=== PATIENT | female | born 1995 | race Caucasian/White ===

== ENCOUNTER 2019-10-23 04:50 | Inpatient (IN) | payer OTHER, SELFPAY ==
[2019-10-23] VITALS (122 sets, daily range): BP systolic 89–152; BP diastolic 45–97; PULSE 25–108; RESP 18–20; TEMP 36.4–37.6; O2SAT 97–100; BMI 28.2
--- NOTE | 2019-10-23 04:50 | LDADM ---
This patient, Rossy Wood, was admitted to Labor/Delivery/Recovery 103 on 10/23/19 at 04:50. Plans for labor, pain management and were discussed with patient. Patient/family oriented to hospital policies and general routines including ID bracelet, bed and alarms, visiting hours, pain management, procedures, bathroom and other care routines, personal items, smoking policy, room service/diet and guest tray routines, infant security routines, and visiting hours. Patient/Family are encouraged to report perceived risks to care and to ask questions if they do not understand what they are told or what they should do. See OBIX for further documentation.
[2019-10-23 05:17] LABS: Basophils Absolute Auto 0.1 K/mm3 (0.0-0.1); Basophils Percent Auto 0.5 % (0.2-1.2); Eosinophils Absolute Auto 0.1 K/mm3 (0-0.3); Eosinophils Percent Auto 0.9 % (0-4.4); Hematocrit 40.4 % (37.0-47.0); Hemoglobin 13.7 g/dL (12.0-15.0); Immature Granulocyte Absolute 0.11 K/mm3 (0.00-0.031); Immature Granulocyte Percent A 1.2 % (0-0.5); Lymphocytes Absolute Auto 2.08 K/mm3 (0.9-3.2); Lymphocytes Percent Auto 22.8 % (18.3-44.2); Mean Corpuscular HGB Conc 33.9 g/dl (32-36); Mean Corpuscular Hemoglobin 30.6 pg (26-34); Mean Corpuscular Volume 90.4 fl (80-100); Mean Platelet Volume 10.4 fl (7.4-10.4); Monocytes Absolute Auto 0.6 K/mm3 (0.1-0.6); Monocytes Percent Auto 6.6 % (2.6-8.5); Neutrophils Absolute Auto 6.2 K/mm3 (1.3-6.7); Platelet Count Result 297 k/mm3 (150-375); Red Blood Count 4.47 M/mm3 (4.2-5.4); Red Cell Distribution Width 14.2 % (11.5-14.5); White Blood Count 9.1 K/mm3 (4.5-10.0)
[2019-10-23 05:20] LABS: Glucose Point of Care 82 (65-105)
[2019-10-23] MEDS: LACTATED RINGERS 1,000 ML 125 ML IV CONT ×4 (05:39→14:12)
[2019-10-23] MEDS: OXYTOCIN 30 UNITS/NS 500 ML 30 UNITS/500 ML BAG 6 UNITS IV CONT (05:40)
--- NOTE | 2019-10-23 05:47 | PM.IMHP ---
H&P: HPI History of Present Illness Date/Time: 10/23/19 05:47 Chief complaint: Induction of Labor Narrative: Rossy Wood is a 24 year old female 020 whose last menstrual period was 01/21/2019, EDC is 10/26/2019, presents at 39 and half weeks gestation for induction of labor. Cervix is favorable and she is negative for group B strep. She has a history of HSV but has seen no lesions and been treated with Valtrex since 30/5 weeks. She does take Celexa 10 mg daily Review of Systems Review of Systems: All systems reviewed & are unremarkable except as noted in HPI and below PMFSH Family History Family History Father Pancreatic cancer Seizure Social History Social History Smoking packs per day: 0.25 Smoking cigarettes per day: 5.0 Years smoked: 9 Smoking pack-years: 2.25 Substance use: never Gender identity (if verbalized by the patient): Female Spiritual care concerns: No Meds Home Medications and Allergies Home Medications Medication Instructions Recorded Confirmed Type PNV cmb#95-ferrous fumarate-FA 1 tablet PO DAILY 10/03/19 10/23/19 History [] citalopram [Celexa] 20 mg PO DAILY 10/03/19 10/23/19 History Allergies Allergy/AdvReac Type Severity Reaction Status Date / Time No Known Allergies Allergy Verified 10/03/19 14:26 Vital Signs Vital Signs - 24 hr 10/23/19 05:36 10/23/19 05:46 Pulse Rate 58 L 59 L Blood Pressure 114/75 123/77 Exam Const: General: no acute distress Eyes: General: appearance normal, both eyes and all related structures Neck: Neck: supple and no JVD Thyroid: thyroid normal Resp: Effort & Inspection: normal respiratory effort Auscultation: clear to auscultation bilaterally Cardio: Rate: regular rate Rhythm: regular rhythm GI: Inspection: non-distended GI Palp: Yes Soft to palpation, No Tenderness to palpation present (GI) and No Guarding due to palpation present (GI) Auscultation: normal bowel sounds : General: Yes bladder normal to palpation External Female Exam: normal external appearance Speculum Exam - Cervix: Cervical os closed (cx 3/75/-2. arom clear. fhts ok) Skin: General skin exam: no rashes or lesions noted Extrem: General: normal to inspection and no edema Psych: Mental Status: mental status grossly normal Affect: normal affect H&P: Results Labs Labs: Short CBC 10/23/19 Range/Units 05:12 WBC 9.1 (4.5-10.0) K/mm3 Hgb 13.7 (12.0-15.0) g/dL Hct 40.4 (37.0-47.0) % Plt Count 297 (150-375) k/mm3 Assessment and Plan Additional Plan impression: Term with favorable cervix Plan: Medical induction of labor. Spontaneous vaginal delivery is expected. She has an epidural candidate
--- NOTE | 2019-10-23 07:08 | WPDANESEPP ---
Anes - Eval Pre Procedure Procedure: labor epidural Date/Time: 10/23/19 07:08 Surgeon: erica Preop Diagnosis: pain during labor Pre Op Diagnosis: Induction of Labor Patient Data Age: 24 Gender: F Height: 5 ft 2 in Weight: 70 kg Last Vital Signs Pulse 55 L 10/23/19 07:01 BP 152/78 H 10/23/19 07:01 Allergies Allergy/AdvReac Type Severity Reaction Status Date / Time No Known Allergies Allergy Verified 10/03/19 14:26 Home Medications Medication Instructions Recorded Confirmed Type PNV cmb#95-ferrous fumarate-FA 1 tablet PO DAILY 10/03/19 10/23/19 History [] citalopram [Celexa] 20 mg PO DAILY 10/03/19 10/23/19 History Laboratory Tests 10/23/19 10/23/19 10/23/19 05:12 05:12 05:12 WBC 9.1 K/mm3 K/mm3 (4.5-10.0) RBC 4.47 M/mm3 M/mm3 (4.2-5.4) Hgb 13.7 g/dL g/dL (12.0-15.0) Hct 40.4 % % (37.0-47.0) MCV 90.4 fl fl (80-100) MCH 30.6 pg pg (26-34) MCHC 33.9 g/dl g/dl (32-36) RDW 14.2 % % (11.5-14.5) Plt Count 297 k/mm3 k/mm3 (150-375) MPV 10.4 fl fl (7.4-10.4) Immature Gran % (Auto) 1.2 % H % (0-0.5) Neut % (Auto) 68.0 % % (45.5-73.1) Lymph % (Auto) 22.8 % % (18.3-44.2) [place] % (Auto) 6.6 % % (2.6-8.5) Eos % (Auto) 0.9 % % (0-4.4) Baso % (Auto) 0.5 % % (0.2-1.2) Lymph # (Auto) 2.08 K/mm3 K/mm3 (0.9-3.2) [place] # (Auto) 0.6 K/mm3 K/mm3 (0.1-0.6) Eos # (Auto) 0.1 K/mm3 K/mm3 (0-0.3) Baso # (Auto) 0.1 K/mm3 K/mm3 (0.0-0.1) Abs Immat Gran (auto) 0.11 K/mm3 H K/mm3 (0.00-0.031) Absolute Neuts (auto) 6.2 K/mm3 K/mm3 (1.3-6.7) Absolute Nucleated RBC 0.0 K/mm3 K/mm3 (0.0-0.012) Nucleated RBC % 0.0 % % (0.0-0.2) POC Capillary Glucose RPR Pending Blood Type A Positive Antibody Screen Negative 10/23/19 05:15 WBC RBC Hgb Hct MCV MCH MCHC RDW Plt Count MPV Immature Gran % (Auto) Neut % (Auto) Lymph % (Auto) [place] % (Auto) Eos % (Auto) Baso % (Auto) Lymph # (Auto) [place] # (Auto) Eos # (Auto) Baso # (Auto) Abs Immat Gran (auto) Absolute Neuts (auto) Absolute Nucleated RBC Nucleated RBC % POC Capillary Glucose 82 mg/dl mg/dl (65-105) RPR Blood Type Antibody Screen Patient hx anesthesia problems: none Family hx anesthesia problems: none PMFSH Past Medical History Medical History Anxiety Family History Family History Father Pancreatic cancer Seizure Social History Social History Smoking packs per day: 0.25 Smoking cigarettes per day: 5.0 Years smoked: 9 Smoking pack-years: 2.25 Substance use: never Gender identity (if verbalized by the patient): Female Spiritual care concerns: No Exam Day of Procedure 10/23/19 07:08 Patient weight: normal Heart: regular rate and rhythm Lungs: clear to auscultation Neurological: alert and oriented
[2019-10-23 07:45] LABS: Rapid Plasma Reagin Non-Reactive (NonReactive)
[2019-10-23] MEDS: ONDANSETRON INJ 4 MG/2 ML VIAL IV PUSH (08:00)
--- NOTE | 2019-10-23 08:50 | WPDANESEPPF ---
Anes - Initial Pre Proc Eval Date/Time: 10/23/19 08:50 Surgeon: Ty Downs MD Pre Op Diagnosis: Induction of Labor Patient Data Age: 24 Gender: F Height: 5 ft 2 in Weight: 70 kg Last Vital Signs Temp 36.4 C 10/23/19 07:00 Pulse 59 L 10/23/19 08:49 BP 111/72 10/23/19 08:49 Pulse Ox 97 10/23/19 08:46 Allergies Allergy/AdvReac Type Severity Reaction Status Date / Time No Known Allergies Allergy Verified 10/03/19 14:26 Home Medications Medication Instructions Recorded Confirmed Type PNV cmb#95-ferrous fumarate-FA 1 tablet PO DAILY 10/03/19 10/23/19 History [] citalopram [Celexa] 20 mg PO DAILY 10/03/19 10/23/19 History Laboratory Tests 10/23/19 10/23/19 10/23/19 05:12 05:12 05:12 WBC 9.1 K/mm3 K/mm3 (4.5-10.0) RBC 4.47 M/mm3 M/mm3 (4.2-5.4) Hgb 13.7 g/dL g/dL (12.0-15.0) Hct 40.4 % % (37.0-47.0) MCV 90.4 fl fl (80-100) MCH 30.6 pg pg (26-34) MCHC 33.9 g/dl g/dl (32-36) RDW 14.2 % % (11.5-14.5) Plt Count 297 k/mm3 k/mm3 (150-375) MPV 10.4 fl fl (7.4-10.4) Immature Gran % (Auto) 1.2 % H % (0-0.5) Neut % (Auto) 68.0 % % (45.5-73.1) Lymph % (Auto) 22.8 % % (18.3-44.2) [place] % (Auto) 6.6 % % (2.6-8.5) Eos % (Auto) 0.9 % % (0-4.4) Baso % (Auto) 0.5 % % (0.2-1.2) Lymph # (Auto) 2.08 K/mm3 K/mm3 (0.9-3.2) [place] # (Auto) 0.6 K/mm3 K/mm3 (0.1-0.6) Eos # (Auto) 0.1 K/mm3 K/mm3 (0-0.3) Baso # (Auto) 0.1 K/mm3 K/mm3 (0.0-0.1) Abs Immat Gran (auto) 0.11 K/mm3 H K/mm3 (0.00-0.031) Absolute Neuts (auto) 6.2 K/mm3 K/mm3 (1.3-6.7) Absolute Nucleated RBC 0.0 K/mm3 K/mm3 (0.0-0.012) Nucleated RBC % 0.0 % % (0.0-0.2) POC Capillary Glucose RPR Non-reactive (NonReactive) Blood Type A Positive Antibody Screen Negative 10/23/19 05:15 WBC RBC Hgb Hct MCV MCH MCHC RDW Plt Count MPV Immature Gran % (Auto) Neut % (Auto) Lymph % (Auto) [place] % (Auto) Eos % (Auto) Baso % (Auto) Lymph # (Auto) [place] # (Auto) Eos # (Auto) Baso # (Auto) Abs Immat Gran (auto) Absolute Neuts (auto) Absolute Nucleated RBC Nucleated RBC % POC Capillary Glucose 82 mg/dl mg/dl (65-105) RPR Blood Type Antibody Screen Patient hx anesthesia problems: none Family hx anesthesia problems: none PMFSH Past Medical History Medical History Anxiety Depression HSV infection Family History Family History Father Pancreatic cancer Seizure Social History Social History Smoking packs per day: 0.25 Smoking cigarettes per day: 5.0 Years smoked: 9 Smoking pack-years: 2.25 Substance use: never Gender identity (if verbalized by the patient): Female Spiritual care concerns: No Anes - Eval Final PreProcedure Day of Procedure 10/23/19 08:50 Patient weight: overweight Heart: regular rate and rhythm Lungs: clear to auscultation Neurological: alert and oriented ASA classification: III Emergent: no Anesthetic plan: proceed Anesthesia type and monitoring: regional epidural and standard monitoring Informed Consent: The patient's anesthetic plan and its attendant risks and benefits were discussed with the patient/family/POA. Questions were solicited and answers provided to the satisfaction of the patient/family/POA.
--- NOTE | 2019-10-23 09:52 | PM.OBPNVD ---
OB - PN: Subj Subjective Date/time seen: 10/23/19 09:52 cx 4.5 by rn exam epidural in [facility] OB - PN: Obj Data Labs CBC & Chem 7: 10/23/19 05:12 Labs: Laboratory Results - last 24 hr 10/23/19 10/23/19 10/23/19 05:12 05:12 05:12 WBC 9.1 RBC 4.47 Hgb 13.7 Hct 40.4 MCV 90.4 MCH 30.6 MCHC 33.9 RDW 14.2 Plt Count 297 MPV 10.4 Immature Gran % (Auto) 1.2 H Neut % (Auto) 68.0 Lymph % (Auto) 22.8 [place] % (Auto) 6.6 Eos % (Auto) 0.9 Baso % (Auto) 0.5 Lymph # (Auto) 2.08 [place] # (Auto) 0.6 Eos # (Auto) 0.1 Baso # (Auto) 0.1 Abs Immat Gran (auto) 0.11 H Absolute Neuts (auto) 6.2 Absolute Nucleated RBC 0.0 Nucleated RBC % 0.0 POC Capillary Glucose RPR Non-reactive Blood Type A Positive Antibody Screen Negative 10/23/19 05:15 WBC RBC Hgb Hct MCV MCH MCHC RDW Plt Count MPV Immature Gran % (Auto) Neut % (Auto) Lymph % (Auto) [place] % (Auto) Eos % (Auto) Baso % (Auto) Lymph # (Auto) [place] # (Auto) Eos # (Auto) Baso # (Auto) Abs Immat Gran (auto) Absolute Neuts (auto) Absolute Nucleated RBC Nucleated RBC % POC Capillary Glucose 82 RPR Blood Type Antibody Screen OB - PN A/P Time Spent With Patient Time: Total time spent is greater than 50% in coordination of care (as documented) at patient's floor/unit and/or counseling patient:
[2019-10-23] MEDS: SODIUM CHLORIDE 0.9% IV 300 ML 600 ML I-UTERINE (10:15)
[2019-10-23 10:19] LABS: Glucose Point of Care 71 (65-105)
[2019-10-23] MEDS: TERBUTALINE SULFATE 1 MG/ML VIAL 0.25 MG SUB-Q (11:35)
--- NOTE | 2019-10-23 13:34 | PM.OBPNVD ---
OB - PN: Subj Subjective Date/time seen: 10/23/19 13:34 earlier episode of bradycardia/resolved with trerbutaline,O2 and repositioning fhts ok now OB - PN: Obj Data Labs CBC & Chem 7: 10/23/19 05:12 Labs: Laboratory Results - last 24 hr 10/23/19 10/23/19 10/23/19 05:12 05:12 05:12 WBC 9.1 RBC 4.47 Hgb 13.7 Hct 40.4 MCV 90.4 MCH 30.6 MCHC 33.9 RDW 14.2 Plt Count 297 MPV 10.4 Immature Gran % (Auto) 1.2 H Neut % (Auto) 68.0 Lymph % (Auto) 22.8 [place] % (Auto) 6.6 Eos % (Auto) 0.9 Baso % (Auto) 0.5 Lymph # (Auto) 2.08 [place] # (Auto) 0.6 Eos # (Auto) 0.1 Baso # (Auto) 0.1 Abs Immat Gran (auto) 0.11 H Absolute Neuts (auto) 6.2 Absolute Nucleated RBC 0.0 Nucleated RBC % 0.0 POC Capillary Glucose RPR Non-reactive Blood Type A Positive Antibody Screen Negative 10/23/19 10/23/19 05:15 10:13 WBC RBC Hgb Hct MCV MCH MCHC RDW Plt Count MPV Immature Gran % (Auto) Neut % (Auto) Lymph % (Auto) [place] % (Auto) Eos % (Auto) Baso % (Auto) Lymph # (Auto) [place] # (Auto) Eos # (Auto) Baso # (Auto) Abs Immat Gran (auto) Absolute Neuts (auto) Absolute Nucleated RBC Nucleated RBC % POC Capillary Glucose 82 71 RPR Blood Type Antibody Screen OB - PN A/P Time Spent With Patient Time: Total time spent is greater than 50% in coordination of care (as documented) at patient's floor/unit and/or counseling patient:
[2019-10-23 14:53] LABS: Glucose Point of Care 63 (65-105)
--- NOTE | 2019-10-23 16:21 | PM.OBPNVD ---
OB - PN: Subj Subjective Date/time seen: 10/23/19 16:21 cx 7.5 by rn exam fhts ok OB - PN: Obj Data Labs CBC & Chem 7: 10/23/19 05:12 Labs: Laboratory Results - last 24 hr 10/23/19 10/23/19 10/23/19 05:12 05:12 05:12 WBC 9.1 RBC 4.47 Hgb 13.7 Hct 40.4 MCV 90.4 MCH 30.6 MCHC 33.9 RDW 14.2 Plt Count 297 MPV 10.4 Immature Gran % (Auto) 1.2 H Neut % (Auto) 68.0 Lymph % (Auto) 22.8 [place] % (Auto) 6.6 Eos % (Auto) 0.9 Baso % (Auto) 0.5 Lymph # (Auto) 2.08 [place] # (Auto) 0.6 Eos # (Auto) 0.1 Baso # (Auto) 0.1 Abs Immat Gran (auto) 0.11 H Absolute Neuts (auto) 6.2 Absolute Nucleated RBC 0.0 Nucleated RBC % 0.0 POC Capillary Glucose RPR Non-reactive Blood Type A Positive Antibody Screen Negative 10/23/19 10/23/19 10/23/19 05:15 10:13 14:48 WBC RBC Hgb Hct MCV MCH MCHC RDW Plt Count MPV Immature Gran % (Auto) Neut % (Auto) Lymph % (Auto) [place] % (Auto) Eos % (Auto) Baso % (Auto) Lymph # (Auto) [place] # (Auto) Eos # (Auto) Baso # (Auto) Abs Immat Gran (auto) Absolute Neuts (auto) Absolute Nucleated RBC Nucleated RBC % POC Capillary Glucose 82 71 63 L RPR Blood Type Antibody Screen OB - PN A/P Time Spent With Patient Time: Total time spent is greater than 50% in coordination of care (as documented) at patient's floor/unit and/or counseling patient:
[2019-10-23 17:35] LABS: Glucose Point of Care 58 (65-105)
--- NOTE | 2019-10-23 18:43 | PM.OBPRVD ---
OB - Delivery Note Procedure Delivery date: 10/23/19 Intrapartal events: None Induction method: AROM Delivery augmentation: pitocin Delivery monitor: external FHT, internal FHT and internal uterine Route of delivery: Episiotomy description: None Laceration description: Perineal - 1st Degree Delivery repair: vicryl Specimen: No Estimated blood loss (mL): 50 Anesthesia type: Epidural Disposition: floor Baby Date of : 10/23/19 Time of : 18:27 Weeks of gestation at delivery: 39 gender: Male presentation: vertex position: Right Occiput Anterior Placenta delivery description: Spontaneous cord vessel description: 3 Vessels and Around Body x1
[2019-10-23] MEDS: ACETAMINOPHEN 325 MG TABLET 650 MG PO (18:59)
[2019-10-23] MEDS: OXYTOCIN 30 UNITS/NS 500 ML 30 UNITS/500 ML BAG 125 UNITS IV CONT (19:00)
[2019-10-23] MEDS: WITCH HAZEL 40 PADS 1 PAD TOPICAL (19:51)
[2019-10-23] MEDS: BENZOCAINE 20% AER SPR (*SP) 56 GM CAN 1 SPRAY TOPICAL (19:51)
--- NOTE | 2019-10-23 21:45 | OBPPTRN ---
Patient transferred to post room #279 via wheelchair. Support person present. Oriented to unit, room, information board, rooming in, admission packet and security measures. Patient verbalizes understanding.
[2019-10-23] MEDS: IBUPROFEN 600 MG TABLET PO (21:58)
[2019-10-24] MEDS: ACETAMINOPHEN 325 MG TABLET 650 MG PO ×4 (01:51→22:05)
--- NOTE | 2019-10-24 03:10 | PC.NURSE ---
Mom down to 1st floor nursery to feed via wheelchair.
--- NOTE | 2019-10-24 04:10 | PC.NURSE ---
Patient back to room via wheelchair from 1st floor nursery.
[2019-10-24] MEDS: IBUPROFEN 600 MG TABLET PO ×3 (04:25→17:53)
[2019-10-24 04:34] LABS: Hematocrit 34.5 % (37.0-47.0); Hemoglobin 11.7 g/dL (12.0-15.0)
--- NOTE | 2019-10-24 06:48 | PM.OBPNVD ---
OB - PN: Subj Subjective Date/time seen: 10/24/19 06:48 Patient comments: no complaints and pain well controlled OB - PN: Obj Data Labs CBC & Chem 7: 10/24/19 04:25 Labs: Laboratory Results - last 24 hr 10/23/19 10/23/19 10/23/19 05:12 05:12 10:13 Hgb Hct POC Capillary Glucose 71 RPR Non-reactive Blood Type A Positive Antibody Screen Negative 10/23/19 10/23/19 10/24/19 14:48 17:34 04:25 Hgb 11.7 L Hct 34.5 L POC Capillary Glucose 63 L 58 L* RPR Blood Type Antibody Screen OB - PN A/P Plan day: 1 Plan: routine care Time Spent With Patient Time: Total time spent is greater than 50% in coordination of care (as documented) at patient's floor/unit and/or counseling patient: Time with patient: less than 15 minutes Review of Systems Review of Systems: All systems reviewed & are unremarkable except as noted in HPI and below Exam Const: General: no acute distress Eyes: General: appearance normal, both eyes and all related structures Neck: Neck: supple and no JVD Thyroid: thyroid normal Resp: Effort & Inspection: normal respiratory effort Auscultation: clear to auscultation bilaterally Cardio: Rate: regular rate Rhythm: regular rhythm GI: Inspection: non-distended GI Palp: Yes Soft to palpation, No Tenderness to palpation present (GI) and No Guarding due to palpation present (GI) Auscultation: normal bowel sounds : General: Yes bladder normal to palpation External Female Exam: normal external appearance Speculum Exam - Vagina: normal vaginal discharge and No vaginal bleeding Speculum Exam - Cervix: nontender Bimanual exam- vagina & uterus: bladder normal to palpation and No Cervical tenderness present OB/external & speculum: No vaginal bleeding Skin: General skin exam: no rashes or lesions noted Extrem: General: normal to inspection and no edema Psych: Mental Status: mental status grossly normal Affect: normal affect
[2019-10-24 06:56] VITALS: PULSE 56; RESP 18; O2SAT 99
[2019-10-24] MEDS: DOCUSATE SODIUM 100 MG CAPSULE PO (07:22)
[2019-10-24 08:15] VITALS: BP 104/63; PULSE 60; RESP 16; TEMP 36.6; O2SAT 100
--- NOTE | 2019-10-24 13:05 | WPDANLDPN2 ---
Anes-Prog Note L&D Date/Time: 10/24/19 13:05 Comfortable throughout: labor and delivery Neuraxial method: epidural Epidural/Spinal procedure site: clean & non-tender Neuro status: Neuro function grossly intact. Cardiovascular status: normal Respiratory status: normal Airway patency: baseline Mental status: baseline Post-Op hydration status: normal Vital Signs: Last Vital Signs Temp 36.6 C 10/24/19 08:15 Pulse 60 10/24/19 08:15 Resp 16 10/24/19 08:15 BP 104/63 10/24/19 08:15 Pulse Ox 100 10/24/19 08:15 Pain score (VAS): 0 I/O: Intake & Output 10/23/19 10/24/19 10/24/19 23:59 07:59 15:59 Intake Total 1600 Output Total 95 Balance 1505 Post-procedural complaints: none Patient feedback: Patient satisfied with anesthetic care.
[2019-10-24 20:00] VITALS: BP 120/73; PULSE 62; RESP 16; TEMP 36.8; O2SAT 98
[2019-10-25] MEDS: IBUPROFEN 600 MG TABLET PO ×3 (00:42→14:00)
--- NOTE | 2019-10-25 07:41 | PM.DS ---
DS: Admitting Diagnosis Admitting Diagnosis Admitting Diagnosis: Induction of Labor DS: Summary Time Spent with Patient Time attestation: Total time spent providing and/or coordinating discharge services: Exam Const: General: no acute distress Eyes: General: appearance normal, both eyes and all related structures Neck: Neck: supple and no JVD Thyroid: thyroid normal Resp: Effort & Inspection: normal respiratory effort Auscultation: clear to auscultation bilaterally Cardio: Rate: regular rate Rhythm: regular rhythm GI: Inspection: non-distended GI Palp: Yes Soft to palpation, No Tenderness to palpation present (GI) and No Guarding due to palpation present (GI) Auscultation: normal bowel sounds : General: Yes bladder normal to palpation External Female Exam: normal external appearance Speculum Exam - Vagina: normal vaginal discharge and No vaginal bleeding Speculum Exam - Cervix: nontender Bimanual exam- vagina & uterus: bladder normal to palpation and No Cervical tenderness present OB/external & speculum: No vaginal bleeding Skin: General skin exam: no rashes or lesions noted Extrem: General: normal to inspection and no edema Psych: Mental Status: mental status grossly normal Affect: normal affect Discharge Plan Discharge Attending physician on discharge: Ty Downs Discharging Clinician: Ty Downs Patient Disposition: Home, Self-Care Activity: may shower, no straining and pelvic rest Diet: heart healthy Wound Care Instructions: follow printed instructions Patient Instructions: Antibiotic Form Stand Alone Forms: General Discharge Information Follow-up/Referrals: Ty Downs MD [Physician] - Discharge Medications: Continued citalopram [Celexa] 20 mg Tablet 20 mg PO DAILY RF: 0 PNV cmb#95-ferrous fumarate-FA [] 28 mg iron- 800 mcg Tablet 1 tablet PO DAILY RF: 0 Date of admission: 10/23/19 04:50 Primary Care Provider: Mina Ashley Admitting Provider: Ty Downs Attending physician on admission: Ty Downs
--- NOTE | 2019-10-25 07:42 | P.PNOB_ITS ---
OB - PN: Subj Subjective Date/time seen: 10/25/19 07:42 Patient comments: no complaints and pain well controlled OB - PN: Obj Data Labs CBC & Chem 7: 10/24/19 04:25 OB - PN A/P Plan day: 2 Plan: routine care, discharge home and follow up 6 weeks Time Spent With Patient Time: Total time spent is greater than 50% in coordination of care (as documented) at patient's floor/unit and/or counseling patient: Time with patient: less than 15 minutes Review of Systems Review of Systems: All systems reviewed & are unremarkable except as noted in HPI and below Exam Const: General: no acute distress Eyes: General: appearance normal, both eyes and all related structures Neck: Neck: supple and no JVD Thyroid: thyroid normal Resp: Effort & Inspection: normal respiratory effort Auscultation: clear to auscultation bilaterally Cardio: Rate: regular rate Rhythm: regular rhythm GI: Inspection: non-distended GI Palp: Yes Soft to palpation, No Tenderness to palpation present (GI) and No Guarding due to palpation present (GI) A uscultation: normal bowel sounds : General: Yes bladder normal to palpation External Female Exam: normal external appearance Speculum Exam - Vagina: normal vaginal discharge and No vaginal bleeding Speculum Exam - Cervix: nontender Bimanual exam- vagina & uterus: bladder normal to palpation and No Cervical tenderness present OB/external & speculum: No vaginal bleeding Skin: General skin exam: no rashes or lesions noted Extrem: General: normal to inspection and no edema Psych: Mental Status: mental status grossly normal Affect: normal affect
[2019-10-25 08:20] VITALS: BP 110/66; PULSE 50; RESP 16; TEMP 37.1; O2SAT 97
[2019-10-25] MEDS: ACETAMINOPHEN 325 MG TABLET 650 MG PO (10:32)
[2019-10-26 13:59] VITALS: BP 119/79; PULSE 47; RESP 20; O2SAT 100
== END 2019-10-25 18:27 | disposition home or self-care (01) | DRG 806 ==
LOC: ANHLDR 11:38 → ANHOB2 21:57
PROVIDERS: Admitting Provider Obstetrics & Gynecology; PCP Emergency Medicine; Visit Provider Obstetrics & Gynecology
DX: O24.429 Gestational diabetes mellitus in childbirth, unspecified control (principal); O98.52 Other viral diseases complicating childbirth; Z37.0 Single live birth; Z3A.39 39 weeks gestation of pregnancy; O36.8330 Maternal care for abnormalities of the fetal heart rate or rhythm, third trimester, not applicable or unspecified; O70.0 First degree perineal laceration during delivery; O69.2XX0 Labor and delivery complicated by other cord entanglement, with compression, not applicable or unspecified; B00.9 Herpesviral infection, unspecified; O99.344 Other mental disorders complicating childbirth; F41.8 Other specified anxiety disorders
CPT/HCPCS: 36415; 85014; 85018; 85025; 86592; 86850; 86900; 86901; A9270; J2405; J2590; J2795; J3010; J3105; J7030; J7120

== ENCOUNTER 2022-01-01 14:15 | Emergency (ER) | payer SELFPAY ==
[2022-01-01 14:37] VITALS: BP 103/63; PULSE 99; RESP 20; TEMP 36.6; O2SAT 99
--- NOTE | 2022-01-01 16:13 | PC.NURSE ---
patient reports that she talked to her dr on phone and was told to go to his office. patient left er
== END 2022-01-01 16:28 | disposition left against medical advice (07) ==
LOC: ANHED 16:19
PROVIDERS: Emergency Provider Emergency Medicine; PCP Emergency Medicine
DX: O21.9 Vomiting of pregnancy, unspecified (principal); Z3A.11 11 weeks gestation of pregnancy
CPT/HCPCS: 99199

== ENCOUNTER 2022-01-01 16:14 | Observation (INO) | payer OTHER, SELFPAY ==
[2022-01-01 17:04] LABS: Appearance Urine Slightly Cloudy (Clear); Bilirubin Urine Negative (Negative); Blood Urine Negative (Negative); Color Urine Light Yellow (Yellow); Glucose Urine UA Negative (Negative); Ketones Urine Negative (Negative); Leukocyte Esterase Ur 1+ LEU/UL (Negative); Nitrate Urine Negative (Negative); Protein Urine Negative (Negative); Specific Grav Ur 1.015 (1.001-1.035); Urobilinogen Urine 0.2 mg/dL (<2.0)
[2022-01-01] MEDS: DEXTROSE 5%/LACTATED RINGERS 1,000 ML 999 ML IV CONT (17:04)
[2022-01-01] MEDS: ONDANSETRON INJ 4 MG/2 ML VIAL IV PUSH (17:05)
[2022-01-01] MEDS: FAMOTIDINE 20 MG/2 ML VIAL IV PUSH (17:11)
[2022-01-01 17:14] LABS: Amorphous Sediment Urine Few; Bacteria Urine 2+ /hpf; Mucus Urine Rare /lpf; Squamous Epithelial Cell Urine Many /hpf (Few); WBC Urine 0-3 /hpf
[2022-01-01 17:16] LABS: Add Urine Microscopic? YES
[2022-01-01 17:20] VITALS: BP 93/44; PULSE 55; RESP 16; TEMP 36.7; BMI 25.4
--- NOTE | 2022-01-01 17:20 | OBADM ---
This patient, Rossy Wood, admitted to the OB room OB Post 116 for observation. Patient/family oriented to hospital policies and general routines including ID bracelet, bed and alarms, visiting hours, pain management, procedures, bathroom and other care routines, personal items, smoking policy, room service/diet, and visiting hours. Patient/Family are encouraged to report perceived risks to care and to ask questions if they do not understand what they are told or what they should do.
[2022-01-01 17:21] VITALS: BP 93/44; PULSE 55
--- NOTE | 2022-01-01 17:39 | PC.NURSE ---
Nausea improving; popcicle given.
--- NOTE | 2022-01-01 18:04 | PC.NURSE ---
Nausea has resolved. Pt kept popcicle down. Gregg crackers given.
--- NOTE | 2022-01-01 18:25 | PC.NURSE ---
Dr. Milly Arevalo paged at this time
--- NOTE | 2022-01-01 18:28 | PC.NURSE ---
Dr Milly Arevalo calls unit at this time. Update given on patient that she has eaten a couple crackers, popcicle, kathrin mist, and water and that she had 1 bag of D5LR, zofran and pepcid. UA results given to provider. Provider updated that patient states if he is okay with me going home then I feel much better right now and am also okay with going home . Discharge orders received at this time with prescription for Zofran 4mg ODT Q6H PRN sent to pharmacy.
--- NOTE | 2022-01-05 07:34 | P.PNOB_ITS ---
OB - Triage/Final Diagnosis Visit Information Reason for evaluation: threatened labor Comments/Additional reasons for admission: I have assessed the risk for this patient, Rossy Wood, and determined that she would benefit from observation care. Evaluation Laboratory results: Laboratory Tests 01/01/22 16:55 Urine Color Light yellow Urine Appearance Slightly cloudy Urine pH 7.0 Ur Specific [place] 1.015 Urine Protein Negative Urine Glucose (UA) Negative Urine Ketones Negative Ur Blood (Man) Negative Urine Nitrate Negative Urine Bilirubin Negative Urine Urobilinogen 0.2 Leukocyte Esterase Rfl 1+ H Urine RBC 3-5 H Urine WBC 0-3 Ur Squamous Epith Cells Many H Amorphous Sediment Few H Urine Bacteria 2+ H Urine Mucus Rare
== END 2022-01-01 18:55 | disposition home or self-care (01) ==
PROVIDERS: Admitting Provider Obstetrics & Gynecology; PCP Emergency Medicine; Visit Provider Obstetrics & Gynecology
DX: O47.00 False labor before 37 completed weeks of gestation, unspecified trimester (principal); Z3A.11 11 weeks gestation of pregnancy
CPT/HCPCS: 81001; 96361; 96374; 96375; G0378; G0379; J2405; J7121

== ENCOUNTER 2022-02-27 02:05 | Observation (INO) | payer OTHER, SELFPAY ==
[2022-02-27] VITALS (29 sets, daily range): BP systolic 107–131; BP diastolic 61–85; PULSE 76–109; O2SAT 92–100; BMI 27.0
--- NOTE | ~2022-02-27 | US_ITS ---
EXAMINATION: US renal BI DATE: 02/27/2022 13:42 INDICATION: Left flank pain. Second trimester . TECHNIQUE: Multiple ultrasound grayscale images of the kidneys were obtained. COMPARISON: None. FINDINGS: The right kidney measures 10.4 x 5.2 x 6.1 cm. The left kidney measures 11.0 x 6.9 x 5.6 cm. The kidn eys demonstrate normal parenchymal echogenicity. There is mild left hydronephrosis. The bladder is no t well distended. IMPRESSION: 1. Mild left hydronephrosis. Reviewed, dictated and finalized at location A. [employer]
[2022-02-27 02:27] LABS: Appearance Urine Slightly Cloudy (Clear); Bilirubin Urine Negative (Negative); Blood Urine 3+ (Negative); Color Urine Yellow (Yellow); Glucose Urine UA Negative (Negative); Ketones Urine Negative (Negative); Leukocyte Esterase Ur 1+ LEU/UL (Negative); Nitrate Urine Negative (Negative); Protein Urine Trace mg/dL (Negative); Specific Grav Ur 1.025 (1.001-1.035); Urobilinogen Urine 0.2 mg/dL (<2.0)
[2022-02-27 02:50] LABS: Bacteria Urine Trace /hpf; Budding Yeast Urine Present /hpf; Mucus Urine Rare /lpf; RBC Urine >75 /hpf (0-2); Squamous Epithelial Cell Urine Moderate /hpf (Few)
[2022-02-27 02:51] LABS: Add Urine Microscopic? YES
[2022-02-27] MEDS: fentaNYL CITRATE INJ (*CRX) 100 MCG/2 ML VIAL 50 MCG IV PUSH (03:01)
[2022-02-27] MEDS: LACTATED RINGERS 1,000 ML 999 ML IV CONT (03:01)
[2022-02-27] MEDS: ONDANSETRON INJ 4 MG/2 ML VIAL IV PUSH (03:02)
[2022-02-27] MEDS: fentaNYL CITRATE INJ (*CRX) 100 MCG/2 ML VIAL IV PUSH (04:09)
[2022-02-27 04:18] LABS: Hematocrit 34.5 % (37.0-47.0); Hemoglobin 11.7 g/dL (12.0-15.0); Mean Corpuscular HGB Conc 33.9 g/dl (32-36); Mean Corpuscular Hemoglobin 30.8 pg (26-34); Mean Corpuscular Volume 90.8 fl (80-100); Mean Platelet Volume 9.2 fl (7.4-10.4); Platelet Count Result 367 k/mm3 (150-375); Red Cell Distribution Width 13.5 % (11.5-14.5); White Blood Count 14.7 K/mm3 (4.5-10.0)
[2022-02-27] MEDS: HYDROcodone/acetaminophen (*CRX) 10-325 MG TABLET 1 TAB PO ×3 (04:19→16:19)
--- NOTE | 2022-02-27 05:41 | OBADM ---
This patient, Rossy Wood, admitted to the OB room OB Post 117 for observation. Patient/family oriented to hospital policies and general routines including ID bracelet, bed and alarms, visiting hours, pain management, procedures, bathroom and other care routines, personal items, smoking policy, room service/diet, and visiting hours. Patient/Family are encouraged to report perceived risks to care and to ask questions if they do not understand what they are told or what they should do.
--- NOTE | 2022-02-27 13:10 | WPDOBADMIT ---
Obstetrics - Admit Note Admission Note: 26 y/o at 39 5/7 weeks here with acute left flank pain. No vaginal bleeding. No leakage of fluid. No fevers. No dysuria. uncomplicated so far. No history of frequent UTI or of stones. Pain much better now on [place]. AVSS NST: FHR doppled TOCO: no contractions ABD soft, nontender, gravid. Fundus at U. EXT nontender Pelvic: deferred Back: No CVA tenderness. Bedside ultrasound by me: Rogers IUP with FHR 150 bpm, good movement. Fundal, posterior placenta. Adequate AFV. WBC 14.7K. Hgb 11.7. UA shows blood. A: IUP at 19 5/7 weeks and likely urinary tract stone. P: Receiving IV fluids and Rocephin, straining urine. Check renal ultrasound. Plan home today on [place] and Keflex, to f/u office next week.
[2022-02-27] MEDS: LACTATED RINGERS 1,000 ML 250 ML IV CONT (14:00)
--- NOTE | 2022-03-26 12:40 | P.PNOB_ITS ---
OB - Triage/Final Diagnosis Visit Information Comments/Additional reasons for admission: I have assessed the risk for this patient, Rossy Wood, and determined that she would benefit from observation care. Evaluation Laboratory results: Laboratory Tests 02/27/22 02/27/22 02:18 04:09 WBC 14.7 H RBC 3.80 L Hgb 11.7 L Hct 34.5 L MCV 90.8 MCH 30.8 MCHC 33.9 RDW 13.5 Plt Count 367 MPV 9.2 Urine Color Yellow Urine Appearance Slightly cloudy Urine pH 7.0 Ur Specific [place] 1.025 Urine Protein Trace Urine Glucose (UA) Negative Urine Ketones Negative Ur Blood (Man) 3+ H Urine Nitrate Negative Urine Bilirubin Negative Urine Urobilinogen 0.2 Leukocyte Esterase Rfl 1+ H Urine RBC >75 H Urine WBC 10-15 H Ur Squamous Epith Cells Moderate H Urine Bacteria Trace Urine Mucus Rare Urine Yeast (Budding) Present H Final Diagnosis (1) Back pain affecting : Code(s): O99.891 - Other specified diseases and conditions complicating ; M54.9 - Dorsalgia, unspecified Status: Acute
== END 2022-02-27 17:09 | disposition home or self-care (01) ==
PROVIDERS: Admitting Provider Obstetrics & Gynecology; PCP Emergency Medicine; Visit Provider Obstetrics & Gynecology
DX: O26.832 Pregnancy related renal disease, second trimester (principal); N13.30 Unspecified hydronephrosis; Z3A.19 19 weeks gestation of pregnancy
CPT/HCPCS: 36415; 76775; 81001; 85027; 87086; 87088; 96361; 96374; 96375; 96376; A9270; G0378; G0379; J0696; J2405; J3010; J7120